=== PATIENT | male | born 1940 | race Caucasian/White ===

== ENCOUNTER 2016-09-30 08:44 | Emergency (ER) | payer MEDICARE, OTHER ==
[~2016-09-30 08:44] MED LIST: ALBUTEROL2.5 MG/0.5 IH; ASA CHILDREN'S81 MG PO; ASPIR 8181 MG PO; BACTRIM 400-801 EACH PO; BIOTIN300 MCG PO; BREO ELLIP1 PUFF/DOS IH; BROVANA15 MCG/2 M IH; BUDESONIDE0.5 MG/2 M IH; CALCIUM 600 +1 EA15 PO; CALCIUM WITH V1 EAC1 PO; CARAFATE D1 GM/10 ML PO; CARAFATE DPS1 GM PO; CARDIZEM CD DP120 MG PO; CARDIZEM CD240 M1 PO; COLACE-DPS100 MG PO; COMBIVENT RESPIM4 GM IH; CORDARONE DPS200 MG PO; COUMADIN10 MG PO; COUMADIN5 MG PO; COUMADIN7.5 MG PO; DALIRESP500 MCG PO; DELTASONE DPS10 MG PO; DUONEB DPS3 ML IH; FEOSOL-DPS325 MG PO; FERROUS SULFAT324 MG PO; FORTAZ2 G1 IV; HUMALOG100 UNIT/1 SQ; HYDROCODONE 7.7.5 MG PO; KCL40 MEQ/30 PO; KLOR-CON M2020 ME1 PO; LANTUS100 UNITS/ SQ; LASIX DPS40 MG PO; LASIX DPS80 MG PO; LASIX40 M1 PO; LEVAQUIN DPS750 MG PO; METOPROLOL TART25 MG PO; MINOCIN DPS100 MG PO; MUCINEX600 MG PO; MUCOMYST 20% DP30 ML IH; MUCOMYST 20% DP30 ML PO; NILSTAT SUSP DPS5 ML PO; POTASSIUM CHLO20 ME2 PO; PREDNISONE1 MG PO; PRILOSEC DPS20 MG PO; PULMICORT0.25 MG/1 IH; QC CALCIUM 6001 EAC1 PO; SPIRIVA RESPIMAT4 GM IH; TYLENOL DPS325 MG PO; VIBRAMYCIN-DPS100 M2 PO; XANAX DPS0.25 MG PO; ZANAFLEX4 MG PO
--- NOTE | 2016-10-18 15:51 | ER ---
ADMIT: 09/30/2016 RM/LOC: ER [facility] MR#: [id number] [address] [id number] ALFA ALBERTS [address] [place] [address] Emergency Room Report SEX: M AGE: 76 : 1940 CORRECTED: 10/01/2016 0711 NJV DATE: 09/30/2016 CHIEF COMPLAINT: Fall, hit head. HISTORY OF PRESENT ILLNESS: This is a 76-year-old male who is not for sure exactly what happened. About midnight to 2 a.m. this morning, he said he fell on the floor next to his bed. He is not for sure if he tried to stand up and then fell to the ground or what exactly happened. He did wait until this morning to call his primary care physician. They told him to come to the ER to be evaluated for his elbow and head pain. This was called as a partial trauma due the patient being on Coumadin. PAST MEDICAL HISTORY: Coronary artery disease, COPD, sleep apnea with CPAP, history of a brain tumor, lobectomy secondary to lung cancer, atrial fibrillation, and diabetes. MEDICATIONS: Please see nurse's note. ALLERGIES: NO KNOWN ALLERGIES. SOCIAL HISTORY: Lives at home with . FAMILY HISTORY: Noncontributory. REVIEW OF SYSTEMS: CONSTITUTIONAL: Denies any fevers, chills, sweats, but did have a recent pneumonia, was hospitalized about a week ago at [facility]. HEENT: He does have minor headache just to the left side of his head where he hit his head. Also nosebleed that has been happening intermittently. HEART AND LUNGS: He denies any chest pain or shortness of breath. GI/: Denies any nausea, vomiting, diarrhea, or dysuria. MUSCULOSKELETAL: His main complaint is left elbow pain and low back pain. All systems otherwise negative. PHYSICAL EXAMINATION: VITAL SIGNS: Blood pressure is 123/74, pulse is 82, respirations are 15, saturation of oxygen is 97% on 5 L. He is chronically on 3.5 To 5 liters. GENERAL APPEARANCE: The patient is no acute distress and alert. HEENT: A minor superficial laceration to his left ear, otherwise no trauma to the head. Eyes are PERRL and EOMs intact. Nose, just a minor amount of old dried blood in his nose. Mouth, no dental injury. No tongue laceration. Pharynx is non-erythemic. No tonsillar swelling or exudate. NECK: No midline tenderness. NEXUS criteria negative HEART: Regular rate and rhythm. LUNGS: Coarse and wheezy bilateral. ABDOMEN: Soft, nontender. MUSCULOSKELETAL: He is tender in his left elbow with ecchymosis. Pain with rotation and flexion and extension. When examining his shoulder on the left, ADMIT: 09/30/2016 [place] [facility] [place] [id number] [address] [place] [id number] ALFA ALBERTS Sudarshan [address] [place] [address] Emergency Room Report SEX: M AGE: 76 : 1940 it is nontender to palpation but does have some minimal pain with abduction. SKIN: Normal color, warm and dry except for minor ecchymoses on his left elbow. NEURO and PSYCH: He is alert and oriented x3. Mood and affect normal. COURSE IN THE EMERGENCY ROOM: CBC, CMP, PT, bedside glucose, CT head, EKG, left elbow, chest x-ray and L-spine x-ray was done. He was given [place] 2 tabs p.o. for pain. CBC did show an elevated white count of 25. He is currently on prednisone. He says he feels quite a bit better from his recent pneumonia. CMP was normal except for albumin of 3.4, GFR of 52. His INR is 1.16. He said he currently has not been taking his Coumadin for 3-4 days due to his doctor told him to hold it for 5 days while being on Diflucan. His bedside glucose is 76. EKG shows atrial fibrillation. Chest x-ray is no acute findings. CT his head, no intracranial injury. Lumbar x-ray over-read by Dr. Blas does not show any acute fractures. I did tell him about his elevated white count. He will follow up this week. I told him to return to the ER if he develops any fevers or any signs of illness. I told him it is more than likely due to his prednisone that he is on. Also told him to start his Coumadin as soon as possible, he is supposed to restart it. Concerning is low back pain. He does have [place], he says at home for pain, told him to continue that as needed for pain. Activity as tolerated and again follow up with primary care physician this week regarding the elevated white count to recheck it and also his low back pain if it worsens. CLINICAL IMPRESSION: Fall with left elbow contusion and lumbar back strain. JOSE MANUEL Lan / Edgar Blas MD / halil JOB #: [id number] CC: Edgar Blas MD, Attending Physician Jan Neri MD, Family Physician CORRECTED: 10/01/2016 0711 NJV
== END 2016-09-30 11:40 | disposition home or self-care (01) ==
LOC: ER 08:44
DX: S39.012A Strain of muscle, fascia and tendon of lower back, initial encounter (principal); S50.02XA Contusion of left elbow, initial encounter; I25.10 Atherosclerotic heart disease of native coronary artery without angina pectoris; G47.30 Sleep apnea, unspecified; E11.9 Type 2 diabetes mellitus without complications; I48.91 Unspecified atrial fibrillation; Z87.898 Personal history of other specified conditions; Z85.118 Personal history of other malignant neoplasm of bronchus and lung; Z90.2 Acquired absence of lung [part of]; Z79.82 Long term (current) use of aspirin; Z79.899 Other long term (current) drug therapy; Z79.4 Long term (current) use of insulin; Z79.01 Long term (current) use of anticoagulants; W18.30XA Fall on same level, unspecified, initial encounter